=== PATIENT | female | born 1935 | race Caucasian/White ===

== ENCOUNTER 2019-05-04 11:50 | Day surgery (SDC) | payer MEDICARE ==
[~2019-05-04] VITALS: Ht 172.7 cm; Wt 107.6 kg
[~2019-05-04 11:50] MED LIST: ADVIL100 MG PO; AMLO5 PO; LEVFLO500 PO; LEVSOD75 PO; LOSARTAN-HCTZ1 EACH PO; Prozac40 MG PO; TRAZ50 PO; VALS80
--- NOTE | 2019-05-04 12:41 | NUR ---
05/04/19 1241 Marisela Pinedo 1 IV MISS IN RW BY EPHRAIM VALVE 1 IV MISS IN RAC BY EPHRAIM VALVE 1 GOOD IV IN LH BY SHANNON PT TOW
== END 2019-05-04 14:00 | disposition home or self-care (01) ==
LOC: ORSCSDS 11:50
PROVIDERS: Internal Medicine Gastroenterology
PROC: 0DBK8ZX Excision of Ascending Colon, Via Natural or Artificial Opening Endoscopic, Diagnostic (ICD-10-PCS; principal; 2019-05-04 13:00)
DX: Z12.11 Encounter for screening for malignant neoplasm of colon (principal); D12.2 Benign neoplasm of ascending colon; K57.30 Diverticulosis of large intestine without perforation or abscess without bleeding; K64.8 Other hemorrhoids; Z86.010 Personal history of colon polyps; I10 Essential (primary) hypertension; E03.9 Hypothyroidism, unspecified; F32.9 Major depressive disorder, single episode, unspecified; Z79.899 Other long term (current) drug therapy; Z87.891 Personal history of nicotine dependence
CPT/HCPCS: 88305; J2704; J7120

== ENCOUNTER 2021-07-06 12:23 | Emergency (ER) | payer MEDICARE ==
[~2021-07-06] VITALS: Ht 170.2 cm; Wt 108.9 kg
[2021-07-06 15:07] LABS: Alanine Aminotransfer (ALT/SGP 33 U/L (12-78); Albumin, Blood 3.5 g/dL (3.4-5.0); Albumin/Globulin Ratio 0.9 (0.8-1.8); Alk Phos 96 U/L (50-136); Anion Gap 8 mmol/L (6-16); Aspartate Aminotrans (AST/SGOT 26 U/L (12-37); Bilirubin, Total 0.6 mg/dL (0.1-1.0); Blood Urea Nitrogen 21 mg/dL (8-24); Bun/Creatinine Ratio 26.7 (12.0-20.0); CO2, Blood 23 mmol/L (21-32); Calcium, Blood 9.3 mg/dL (8.5-10.1); Chloride, Blood 108 mmol/L (98-108); Creatinine, Blood 0.79 mg/dL (0.40-1.00); Globulin, Blood 4.1 g/dL (2.2-4.0); Glomerular Filtration Rate >60 (60-); Glucose, Blood 91 mg/dL (70-99); Potassium, Blood 3.7 mmol/L (3.5-5.5); Sodium, Blood 139 mmol/L (136-145); Total Protein, Blood 7.6 g/dL (6.4-8.2)
[2021-07-06 15:59] LABS: BASOPHILS ABSOLUTE AUTO 0.07 K/mm3 (0.00-0.23); BASOPHILS PERCENT AUTO 1 % (0-2); EOSINOPHILS PERCENT AUTO 3 % (0-6); Hematocrit 43.8 % (33.0-51.0); Hemoglobin 14.5 g/dL (11.5-16.0); IMMATURE GRAN ABSOLUTE AUTO 0.05 K/mm3 (0.00-0.10); IMMATURE GRAN PERCENT AUTO 1 % (0-1); LYMPHOCYTES ABSOLUTE AUTO 1.44 K/mm3 (0.84-5.20); LYMPHOCYTES PERCENT AUTO 16 % (21-46); MONOCYTES ABSOLUTE AUTO 0.76 K/mm3 (0.16-1.47); MONOCYTES PERCENT AUTO 9 % (4-13); Mean Corpuscular HGB 27.6 pg (26.0-34.0); Mean Corpuscular HGB Conc 33.1 g/dL (31.5-36.5); Mean Corpuscular Volume 83 fL (80-100); Mean Platelet Volume 9.8 fL (9.1-12.4); NEUTROPHILS ABSOLUTE AUTO 6.25 K/mm3 (1.96-9.15); NEUTROPHILS PERCENT AUTO 70 % (41-73); Platelet Count 255 K/mm3 (150-400); RDW Coefficient Variation 13.6 % (11.7-14.2); RDW Standard Deviation 41.4 fL (35.1-46.3); Red Blood Cell Count 5.25 M/mm3 (3.80-5.20); White Blood Cell Count 8.87 K/mm3 (4.00-11.30)
== END 2021-07-06 17:49 | disposition home or self-care (01) ==
LOC: ER 12:23
PROVIDERS: Emergency Medicine
DX: R07.2 Precordial pain (principal); I10 Essential (primary) hypertension; Z91.013 Allergy to seafood; Z88.8 Allergy status to other drugs, medicaments and biological substances; Z79.899 Other long term (current) drug therapy
CPT/HCPCS: 36415; 71045; 80053; 83880; 84439; 84484; 85025

== ENCOUNTER 2022-02-07 05:54 | Day surgery (SDC) | payer MEDICARE ==
[~2022-02-07] VITALS: Ht 170.2 cm; Wt 108.5 kg
[~2022-02-07 05:54] MED LIST changes: +CALCIUM CIT 311 EAC7 PO; +CENTRUM SILVER1 EAC2 PO; +DICL75ER PO; +DILT180 PO; +IBUP400 PO; +LEVSOD100 PO; -LEVSOD75 PO; +Prozac20 MG PO; +SUPER B COMPLEX PO; +TOCO1000 PO; +VITAMIN B125000 MC1 PO
--- NOTE | 2022-02-07 06:43 | NUR ---
Wheelchair into Day Surgery. History, Chart, Medications and Allergies reviewed before start of procedure. Pt has a sore to left lower leg that is healing with shiny moist look with red margins around sore area noted and Patient complaining about vaginal area very itching. Looked at area and skin red from scratching but no open skin sores noted. Called to Dr. Crews with patients status and after discussing situation, surgery is cancelled. Informed patient about Dr Crews's dicision and informed patient to have areas looked at and treated. Dr. Crews's office will call and reschedule surgery. Discharge home with daughter.
== END 2022-02-07 22:56 | disposition home or self-care (01) ==
LOC: ORSCMMR 05:54 → ORD 07:30 → ORSCMMR 22:56
DX: M16.11 Unilateral primary osteoarthritis, right hip (principal); Z53.9 Procedure and treatment not carried out, unspecified reason
CPT/HCPCS: A9270; J0171; J0690; J0735; J1885; J2795; J7120

== ENCOUNTER 2022-04-25 08:28 | Day surgery (SDC) | payer MEDICARE ==
[~2022-04-25] VITALS: Ht 170.2 cm; Wt 106.9 kg
--- NOTE | 2022-04-25 11:54 | NUR ---
04/25/22 1154 Marlin Rouse PATIENT RECEIVED VANCO 1GM IN THE PREOP SETTING PRIOR TO ARRIVING IN THE OR.
--- NOTE | 2022-04-25 19:38 | NUR ---
SHIFT SUMMARY ARRIVED AROUND 1500, VERY DROWSY. HAS BEEN DROWSY SINCE BUT SLOWLY BECOMING MORE ALERT. NOW AWAKENS WHEN STAFF ENTERS ROOM & CAN FINISH SENTENCES BEFORE FALLING ASLEEP.
--- NOTE | 2022-04-26 04:20 | NUR ---
POD1 RIGHT TOTAL HIP. SENSATION AND CIRCULATION REMAINS INTACT. VSS. PT SLEPT ON AND OFF T/O THE NIGHT. AMBULATED TO BSC TO VOID. CONT AND INCONT VOIDS NOTED. MEDICATED FOR PAIN WTIH SCHEDULED AND PRN. CRYO REMAINED IN PLACE. TOLLERATINGN OP W/O N/V. PLAN FOR PT TO WORK WITH PT/OT AND D/C HOME. THE PATIENT IS CURRENTLY SLEEPING, IN NO DISTRESS, CALL LIGHT IN REACH.
[2022-04-26 04:52] LABS: BASOPHILS ABSOLUTE AUTO 0.01 K/mm3 (0.00-0.23); BASOPHILS PERCENT AUTO 0 % (0-2); EOSINOPHILS PERCENT AUTO 0 % (0-6); Hematocrit 36.6 % (33.0-51.0); Hemoglobin 11.9 g/dL (11.5-16.0); IMMATURE GRAN ABSOLUTE AUTO 0.07 K/mm3 (0.00-0.10); IMMATURE GRAN PERCENT AUTO 1 % (0-1); LYMPHOCYTES ABSOLUTE AUTO 0.63 K/mm3 (0.84-5.20); LYMPHOCYTES PERCENT AUTO 4 % (21-46); MONOCYTES ABSOLUTE AUTO 0.77 K/mm3 (0.16-1.47); MONOCYTES PERCENT AUTO 5 % (4-13); Mean Corpuscular HGB 27.3 pg (26.0-34.0); Mean Corpuscular HGB Conc 32.5 g/dL (31.5-36.5); Mean Corpuscular Volume 84 fL (80-100); Mean Platelet Volume 9.4 fL (9.1-12.4); NEUTROPHILS ABSOLUTE AUTO 13.77 K/mm3 (1.96-9.15); NEUTROPHILS PERCENT AUTO 90 % (41-73); Platelet Count 219 K/mm3 (150-400); RDW Standard Deviation 43.1 fL (35.1-46.3); Red Blood Cell Count 4.36 M/mm3 (3.80-5.20); White Blood Cell Count 15.25 K/mm3 (4.00-11.30)
[2022-04-26 05:16] LABS: Bun/Creatinine Ratio 27.3 (12.0-20.0); Calcium, Blood 8.4 mg/dL (8.5-10.1); Creatinine, Blood 0.95 mg/dL (0.40-1.00); Magnesium, Blood 2.1 mg/dL (1.6-2.4); Potassium, Blood 4.2 mmol/L (3.5-5.5)
[2022-04-26] MEDS ORDERED: ASPI81CH PO (10:17)
[2022-04-26] MEDS ORDERED: OXAYDO5 M1 PO (10:18)
[2022-04-26] MEDS ORDERED: PROM25 PO (10:18)
[2022-04-26] MEDS ORDERED: SULTRIDS PO (10:19)
--- NOTE | 2022-04-26 11:05 | NUR ---
PT REPORTS PAIN IS ADEQUATELY CONTROLLED AT 2/10. AMBULAting with walker.gait belt and standby assist. PASTOR PO FOOD AND FLUIDS WITHOUT NAUASEA RIGHT HIP INCISIONS WITH DRESSINGS CLEAN, DRY AND INTACT. PT DISCHARGE INSTRUCTIONS REVIEWED WITH PATIENT AND HER DAUGHTER AND QUESTIONS ANSWERED. PT DISCHARGED TO HOME WITH HER DAUGHTER
== END 2022-04-26 11:05 | disposition home or self-care (01) ==
LOC: ORSCMMR 08:28 → ORD 10:45 → ORSCMMR 10:45 → ORD 12:30 → SURS 14:30 → ORD 14:30 → ORSCMMR 04-26 11:05 → ORD 07-18 14:00
PROVIDERS: Orthopaedic Surgery
PROC: 0SR90JA Replacement of Right Hip Joint with Synthetic Substitute, Uncemented, Open Approach (ICD-10-PCS; principal; 2022-04-25 10:45)
DX: M16.11 Unilateral primary osteoarthritis, right hip (principal); I10 Essential (primary) hypertension; E03.9 Hypothyroidism, unspecified; E66.9 Obesity, unspecified; Z68.36 Body mass index [BMI] 36.0-36.9, adult; Z79.899 Other long term (current) drug therapy; F32.A Depression, unspecified; Z87.891 Personal history of nicotine dependence
CPT/HCPCS: 36415; 72170; 80048; 83735; 85025; 97110; 97116; 97162; 97165; 97530; 97535; A9270; C1713; C1776; J0171; J0690; J0735; J1100; J1885; J2270; J2405; J2550; J2704; J2795; J3010; J3370; J7120

== ENCOUNTER → 2024-01-31 | Outpatient (CLI) | payer MEDICARE ==
[~2024-01-31] MED LIST changes: +ASPI81CH PO; +OXAYDO5 M1 PO; +PROM25 PO; +SULTRIDS PO
== END ==
LOC: LAB 15:04 → LAB SHORT 15:04
DX: N39.0 Urinary tract infection, site not specified (principal)
CPT/HCPCS: 87077; 87086; 87186

== ENCOUNTER 2024-03-23 05:54 | Day surgery (SDC) | payer MEDICARE ==
[2024-03-23] VITALS (14 sets, daily range): BP systolic 128–169; BP diastolic 68–94
[~2024-03-23] VITALS: Ht 170.2 cm; Wt 104.0 kg
[~2024-03-23 05:54] MED LIST changes: -SUPER B COMPLEX PO; +Vitamin B Comple1 EA PO
[2024-03-23] MEDS ORDERED: Acetaminophen 500 MG Tab PO SCH ×2 (06:20→08:00)
[2024-03-23] MEDS ORDERED: Ropivacaine 0.5% HCl/Pf 123.125 MG,EPINEPHrine HCL 0.25 MG,Ketorolac Tromethamine 15 MG... INFIL SCH (06:20)
[2024-03-23] MEDS ORDERED: Tranexamic Acid 1,000 MG in NS 100 ML IV SCH (06:20)
[2024-03-23] MEDS ORDERED: CeFAZolin Sodium 2,000 MG in NS 100 ML IV SCH ×2 (06:20→15:45)
[2024-03-23] MEDS ORDERED: Chlorhexidine Mouth Care 15 ML UDC MT SCH (06:20)
[2024-03-23] MEDS ORDERED: OxyCODONE HCL 10 MG TABCR PO SCH (06:20)
[2024-03-23] MEDS ORDERED: Lactated Ringer's 1,000 ML IV SCH ×2 (06:20→08:05)
[2024-03-23] MEDS ORDERED: CeFAZolin Sodium 2,000 MG VIAL ONE (06:48)
[2024-03-23] MEDS ORDERED: POTCHL20ER PO (06:50)
[2024-03-23] MEDS ORDERED: FURO20 PO (06:50)
[2024-03-23] MEDS ORDERED: Midazolam HCl 1MG / ML 2ML Vial ONE (06:57)
[2024-03-23] MEDS ORDERED: FentaNYL Citrate 50 MCG/ML 2 ML Injection ONE ×2 (06:57→08:38)
[2024-03-23] MEDS ORDERED: Dexamethasone Sod Phos 10 MG/ML 1ML VIAL ONE (06:58)
[2024-03-23] MEDS ORDERED: Phenylephrine HCl 100 MCG/ML-NS 10MLSYR (1MG/10ML) ONE (06:58)
[2024-03-23] MEDS ORDERED: Ondansetron HCl 2 MG / ML 2ML Vial ONE (06:58)
--- NOTE | 2024-03-23 07:32 | NUR ---
History, Chart, Medications and Allergies reviewed before start of procedure. Lungs clear T/O to Auscultation. SOB WITH ACTIVITY. REPORTS BREATHING IS NORMAL, NO ACUTE CHANGES. Pre-Op teaching done. Pt verbalizes understanding. Patient reports completing Chlorhexadine shower X2 prior to admission to hospital. IV ATTEMPTS BY MYSELF, JUAN Velez X [address] CLAY PLACED 22G IN R WRIST.
[2024-03-23] MEDS ORDERED: propofoL 60 ML IV ONE (07:34)
[2024-03-23] MEDS ORDERED: ePHEDrine Sulfate 50 MG/ML 1ML Injection ONE (07:35)
--- NOTE | 2024-03-23 07:45 | NUR ---
PT GLASSES PLEASED IN PACU. PT BACK TO OR WITH UPPER PLATE AND BILATERAL HEARING AIDS. CRIS ORTEGA AWARE AND DENTURE CUP PROVIDED.
[2024-03-23] MEDS ORDERED: HYDROmorphone HCl/Pf 1MG SYR IV PRN (07:55)
[2024-03-23] MEDS ORDERED: FLU VACC TS2024-25(6MOS UP)/PF 45 MCG/0.5 ML SYRINGE IM SCH (07:55)
[2024-03-23] MEDS ORDERED: DiphenhydrAMINE HCL 25 MG Cap PO PRN (08:00)
[2024-03-23] MEDS ORDERED: Promethazine HCl 25 MG Tab PO PRN (08:00)
[2024-03-23] MEDS ORDERED: OxyCODONE HCL 5 MG TAB PO PRN ×2 (08:00→08:05)
[2024-03-23] MEDS ORDERED: Bisacodyl 10 MG Supp PR PRN (08:00)
[2024-03-23] MEDS ORDERED: Prochlorperazine Edisylate 10 mg Vial IV PRN (08:00)
[2024-03-23] MEDS ORDERED: Ondansetron HCl 2 MG / ML 2ML Vial IV PRN (08:05)
[2024-03-23] MEDS ORDERED: Metoclopramide HCl 5MG / ML 2ML Vial IV PRN (08:05)
[2024-03-23] MEDS ORDERED: Magnesium Hydroxide Conc 10 ML UDC PO PRN (08:05)
[2024-03-23] MEDS ORDERED: Docusate Sodium 100 MG Cap PO SCH (09:00)
--- NOTE | 2024-03-23 09:00 | NUR ---
03/23/24 0859 Dee,Eloisa SPINAL BLOCK ATTEMPTED UPON ENTRY TO OR. PROCEDURE CONVERTED TO GENERAL ANESTHETIC.
[2024-03-23] MEDS ORDERED: HYDROmorphone HCl/Pf 1MG SYR ONE (09:26)
[2024-03-23] MEDS ORDERED: propofoL 20 ML IV ONE (09:37)
[2024-03-23] MEDS ORDERED: Ketorolac Tromethamine 15mg Vial IV SCH (12:00)
--- NOTE | 2024-03-23 13:59 | NUR ---
THERAPY: THERAPY IN ROOM TO ATTEMPT TO WORK WITH PATIENT. PATIENT DENIES PAIN AT THIS TIME. IV S.L. WILL MONITOR PROGRESS.
[2024-03-23] MEDS ORDERED: ACET500 PO (16:05)
[2024-03-23] MEDS ORDERED: ASPI81CH PO (16:05)
[2024-03-23] MEDS ORDERED: OXYC5 PO (16:05)
--- NOTE | 2024-03-23 19:19 | NUR ---
PT IS STABLE POST OP DAY 0 LEFT TOTAL HIP. PRINEO INTACT, SMALL AMT DRAINAGE. REINFORCED WITH AQUACEL DRESSING PRN. POLAR PACK,TEDS AND PAS IN PLACE. CIRC AND SENSATION WNL. PT WORKED WELL WITH THERAPY AND STAFF TO MOBILIZE AND SIT IN CHAIR. PAIN MANAGED WITH SCHEDULED MEDS. IV INFUSING. PT HAS NOT VOIDED. BLADDER SCAN 322 AT 6HR ABAD. ENCOURAGED PO. PT REMAINS ON 3L O2. SPIROMETRY GIVEN. USES CALL LIGHT APPROPRIATELY NEEDED.
[2024-03-24 05:24] VITALS: BP 138/71
[2024-03-24 05:59] LABS: BASOPHILS ABSOLUTE AUTO 0.02 K/mm3 (0.00-0.23); BASOPHILS PERCENT AUTO 0 % (0-2); EOSINOPHILS PERCENT AUTO 0 % (0-6); Hematocrit 36.4 % (33.0-51.0); Hemoglobin 12.2 g/dL (11.5-16.0); IMMATURE GRAN ABSOLUTE AUTO 0.08 K/mm3 (0.00-0.10); IMMATURE GRAN PERCENT AUTO 1 % (0-1); LYMPHOCYTES ABSOLUTE AUTO 0.71 K/mm3 (0.84-5.20); LYMPHOCYTES PERCENT AUTO 5 % (21-46); MONOCYTES ABSOLUTE AUTO 1.25 K/mm3 (0.16-1.47); MONOCYTES PERCENT AUTO 8 % (4-13); Mean Corpuscular HGB 28.8 pg (26.0-34.0); Mean Corpuscular HGB Conc 33.5 g/dL (31.5-36.5); Mean Corpuscular Volume 86 fL (80-100); Mean Platelet Volume 9.6 fL (9.1-12.4); NEUTROPHILS ABSOLUTE AUTO 13.85 K/mm3 (1.96-9.15); NEUTROPHILS PERCENT AUTO 87 % (41-73); Platelet Count 223 K/mm3 (150-400); RDW Coefficient Variation 12.9 % (11.7-14.2); RDW Standard Deviation 39.8 fL (35.1-46.3); Red Blood Cell Count 4.23 M/mm3 (3.80-5.20); White Blood Cell Count 15.91 K/mm3 (4.00-11.30)
[2024-03-24] MEDS ORDERED: Levothyroxine Sodium 0.1 MG Tab PO SCH (06:00)
--- NOTE | 2024-03-24 06:20 | NUR ---
SHIFT SUMMARY POD 1 L BRANDEN. NO ACUTE CHANGES OVERNIGHT. VSS, PT ON 2L O2 VIA NC WHILE ASLEEP. TOLERATING ORALS. PRINEO / AQUACEL DRESSING C/D/I c MOD SEROSANG DRAINAGE. PT REPORTS MUSCLE SPASMS/PAIN TO L HIP, TOLERABLE, MEDICATED PER EMAR, POLAR PACK IN USE. VOIDING, BASELINE INCONT ATTENDS IN USE. AMB USING FWW c GB. ANTICIPATED TO WORK c PHYSCIAL THERAPY & DISCHARGE HOME LATER TODAY. CALL LIGHT IN REACH, WILL REPORT TO DAY RN.
[2024-03-24 06:21] LABS: Bun/Creatinine Ratio 26.8 (12.0-20.0); Calcium, Blood 9.3 mg/dL (8.5-10.1); Creatinine, Blood 0.71 mg/dL (0.40-1.00); Magnesium, Blood 2.1 mg/dL (1.6-2.4); Potassium, Blood 4.3 mmol/L (3.5-5.5)
[2024-03-24 07:14] VITALS: BP 146/70
[2024-03-24] MEDS ORDERED: Furosemide 20 MG Tab PO SCH (09:00)
[2024-03-24] MEDS ORDERED: Potassium Chloride 20 MEQ TabCR PO SCH (09:00)
[2024-03-24] MEDS ORDERED: Diltiazem HCl 180 MG Cap.CD PO SCH (09:00)
[2024-03-24] MEDS ORDERED: FLUoxetine HCL 20 MG CAP PO SCH (09:00)
[2024-03-24] MEDS ORDERED: Aspirin 81 MG Chew PO SCH (09:00)
[2024-03-24 10:15] VITALS: BP 133/64
--- NOTE | 2024-03-24 10:40 | NUR ---
DISCHARGE PT PROVIDED WITH WRITTEN AND VERBAL DISCHARGE INSTRUCTIONS, SHE AND HER DAUGHTER REPORTED UNDERSTANDING. PAIN MANAGED AT TIME OF DISCHARGE. PT CLEARED THERAPY. DRAINAGE PRESENT ON DRESSING, DRESSING WAS CHANGED PRIOR TO DISCHARGE. CLEAN DRESSINGS SENT HOME WITH PT AND SHE WAS EDUCATED ABOUT DRESSING CHANGES. PT ASSISTED OUT IN W/C AT APPROXIMATELY 1040.
== END 2024-03-24 10:40 | disposition home or self-care (01) ==
LOC: ORSCMMR 05:54 → ORD 07:30 → ORSCMMR 07:30 → SURS 10:59 → ORSCMMR 03-24 10:40
PROVIDERS: Orthopaedic Surgery
PROC: 0SRB0JA Replacement of Left Hip Joint with Synthetic Substitute, Uncemented, Open Approach (ICD-10-PCS; principal; 2024-03-23 07:30)
DX: M16.12 Unilateral primary osteoarthritis, left hip (principal); I10 Essential (primary) hypertension; E78.5 Hyperlipidemia, unspecified; Z87.891 Personal history of nicotine dependence; E03.9 Hypothyroidism, unspecified; F41.9 Anxiety disorder, unspecified; F32.A Depression, unspecified; E66.01 Morbid (severe) obesity due to excess calories; Z68.35 Body mass index [BMI] 35.0-35.9, adult; Z79.899 Other long term (current) drug therapy
CPT/HCPCS: 36415; 72170; 80048; 83735; 85025; 97110; 97116; 97162; A6010; A9270; C1776; J0171; J0690; J0735; J1100; J1171; J1885; J2250; J2371; J2405; J2704; J2795; J3010; J7120

== ENCOUNTER → 2024-09-15 | Outpatient (CLI) | payer MEDICARE ==
[~2024-09-15] MED LIST changes: +ACET500 PO; +FURO20 PO; +OXYC5 PO; +POTCHL20ER PO
== END | disposition home or self-care (01) ==
LOC: LAB SHORT 15:56 → LAB 15:56
DX: N39.0 Urinary tract infection, site not specified (principal); R31.9 Hematuria, unspecified
CPT/HCPCS: 87086

== ENCOUNTER 2024-10-10 12:28 | Emergency (ER) | payer MEDICARE ==
[~2024-10-10] VITALS: Ht 172.7 cm; Wt 104.3 kg
[2024-10-10 12:56] VITALS: BP 152/69
[2024-10-10 13:06] LABS: BASOPHILS ABSOLUTE AUTO 0.06 K/mm3 (0.00-0.23); BASOPHILS PERCENT AUTO 1 % (0-2); EOSINOPHILS ABSOLUTE AUTO 0.20 K/mm3 (0.00-0.68); EOSINOPHILS PERCENT AUTO 2 % (0-6); Hematocrit 41.4 % (33.0-51.0); Hemoglobin 13.7 g/dL (11.5-16.0); IMMATURE GRAN ABSOLUTE AUTO 0.05 K/mm3 (0.00-0.10); IMMATURE GRAN PERCENT AUTO 1 % (0-1); LYMPHOCYTES ABSOLUTE AUTO 1.42 K/mm3 (0.84-5.20); LYMPHOCYTES PERCENT AUTO 14 % (21-46); MONOCYTES ABSOLUTE AUTO 0.94 K/mm3 (0.16-1.47); MONOCYTES PERCENT AUTO 10 % (4-13); Mean Corpuscular HGB Conc 33.1 g/dL (31.5-36.5); Mean Corpuscular Volume 83 fL (80-100); NEUTROPHILS ABSOLUTE AUTO 7.19 K/mm3 (1.96-9.15); NEUTROPHILS PERCENT AUTO 73 % (41-73); NRBC ABSOLUTE 0.00 K/mm3 (0.00-0.02); NRBC Auto 0.0 /100 WBC (0.0-0.2); Platelet Count 249 K/mm3 (150-400); RDW Coefficient Variation 14.1 % (11.7-14.2); RDW Standard Deviation 42.2 fL (35.1-46.3)
[2024-10-10 13:36] LABS: Alanine Aminotransfer (ALT/SGP 29.0 U/L (12-78); Albumin, Blood 3.4 g/dL (3.4-5.0); Albumin/Globulin Ratio 0.8 (0.8-1.8); Anion Gap 8.0 mmol/L (3-11); Aspartate Aminotrans (AST/SGOT 24.0 U/L (12-37); Bilirubin, Total 0.3 mg/dL (0.1-1.0); Blood Urea Nitrogen 22.0 mg/dL (8-24); CO2, Blood 25.0 mmol/L (21-32); Calcium, Blood 9.1 mg/dL (8.5-10.1); Chloride, Blood 106.0 mmol/L (98-108); Creatinine, Blood 0.69 mg/dL (0.40-1.00); Globulin, Blood 4.1 g/dL (2.2-4.0); Glucose, Blood 102.0 mg/dL (70-99); Potassium, Blood 3.4 mmol/L (3.5-5.5); Sodium, Blood 136.0 mmol/L (136-145); Total Protein, Blood 7.5 g/dL (6.4-8.2)
== END 2024-10-10 17:31 | disposition home or self-care (01) ==
LOC: ER 12:28
PROVIDERS: Physician Assistant
DX: R07.89 Other chest pain (principal); I10 Essential (primary) hypertension; E03.9 Hypothyroidism, unspecified; Z79.82 Long term (current) use of aspirin; Z79.899 Other long term (current) drug therapy; Z91.013 Allergy to seafood; Z91.041 Radiographic dye allergy status
CPT/HCPCS: 71046; 80053; 83690; 83880; 84484; 85025; 93005; 93010; 99285-25